=== PATIENT | male | born 1945 | race Caucasian/White ===

== ENCOUNTER 2024-05-11 06:21 | Day surgery (SDC) | payer OTHER, SELFPAY ==
[2024-05-06 08:37] VITALS: BMI 36.6
[2024-05-06 09:00] LABS: Hematocrit 46.9 % (39.0-52.0); Mean Corp Hgb Conc. 34.1 g/dL (33.0-37.0); Mean Corpuscular Hgb 30.9 pg (27.0-31.0); Mean Corpuscular Volume 90.5 fL (80.0-94.0); Mean Platelet Volume 9.2 fL (7.4-10.4); Platelet Count 244 10^3/uL (130-400); Red Blood Cell Count 5.18 10^6/uL (4.70-6.10); Red Cell Dist. Width 12.4 % (11.5-14.5); White Blood Cell Count 5.7 10^3/uL (4.8-10.8)
[2024-05-06 09:24] LABS: ALT (SGPT) 39 U/L (0-50); AST (SGOT) 34 U/L (17-59); Albumin 4.2 g/dl (3.5-5.0); Alkaline Phosphatase 63 U/L (38-126); Blood Urea Nitrogen 23 mg/dl (9-20); Calcium 9.6 mg/dl (8.4-10.2); Carbon Dioxide 22 mmol/L (22-30); Chloride 106 mmol/L (98-107); Estimated Creatinine Clearance 91 ml/min; Glucose 101 mg/dl (70-99); Potassium 4.7 mmol/L (3.5-5.1); Sodium 142 mmol/L (135-145); Total Bilirubin 0.7 mg/dl (0.2-1.3); Total Protein 6.6 g/dl (6.3-8.2); eGFR > 60.00
[2024-05-11] VITALS (19 sets, daily range): BP systolic 91–197; BP diastolic 52–101; BMI 36.6
[2024-05-11] MEDS: TYLENOL 1000 MG PO ×3 (10:32→21:22)
[2024-05-11] MEDS: NORMOSOL-R/PLASMALYTE-A 1000 IV ×2 (10:32→19:56)
[2024-05-11] MEDS: SKELAXIN 800 MG PO (10:32)
[2024-05-11] MEDS: LYRICA 150 MG PO (10:32)
[2024-05-11] MEDS: CELEBREX 200 MG PO (10:32)
--- NOTE | 2024-05-11 14:36 | W.PN.UPDATE ---
Update Note
Progress Note Update
Lumbar stenosis and spondylolisthesis s/p L4-L5 PSF/poss Nelson w/ Dr Adair 05/11/24
DVT prophylaxis - b/l SCDs/TEDs
HTN - + parameters - monitor BP
SBO, 2019, treated conservatively
Diverticulosis
OA s/p b/l NAZ, R TKA
Elevated PSA w/o d/o BPH
Skin CA s/p MOHS x2
The patient will use a back brace post-op
[2024-05-11] MEDS: DILAUDID 0.25 MG IV ×2 (15:05→15:32)
[2024-05-11] MEDS: FLOMAX 0.4 MG PO (16:37)
[2024-05-11] MEDS: ZESTRIL 40 MG PO (17:31)
[2024-05-11] MEDS: ULTRAM 50 MG PO (17:42)
[2024-05-11] MEDS: ANCEF 5 IV (19:57)
[2024-05-11] MEDS: SENOKOT 17.2 MG PO (19:59)
[2024-05-11] MEDS: COLACE 100 MG PO (19:59)
[2024-05-11] MEDS: LYRICA 75 MG PO (21:21)
[2024-05-12] MEDS: ULTRAM 50 MG PO ×3 (00:28→11:51)
[2024-05-12] MEDS: NORMOSOL-R/PLASMALYTE-A 1000 IV (04:28)
[2024-05-12] MEDS: ANCEF 5 IV (04:28)
[2024-05-12] MEDS: TYLENOL 1000 MG PO ×2 (04:33→10:19)
[2024-05-12 05:48] LABS: Hematocrit 41.1 % (39.0-52.0)
[2024-05-12 06:35] LABS: Blood Urea Nitrogen 27 mg/dl (9-20); Calcium 8.8 mg/dl (8.4-10.2); Carbon Dioxide 25 mmol/L (22-30); Chloride 103 mmol/L (98-107); Estimated Creatinine Clearance 83 ml/min; Glucose 120 mg/dl (70-99); Potassium 4.6 mmol/L (3.5-5.1); Sodium 140 mmol/L (135-145); eGFR > 60.00
[2024-05-12 07:11] VITALS: BP 144/87
--- NOTE | 2024-05-12 07:54 | W.DS.TRANS ---
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
-
Discharge Instructions:
Sleep Apnea Risk High
Discharge Diagnosis/Procedures Lumbar stenosis and spondylolisthesis s/p L4-L5
posterior fusion and possible laminectomy w/ Dr
Adair 05/11/24
Diet Regular
Activity As tolerated
Additional Activity No heavy lifting >10 lbs
Driving Restrictions Not until seen by your Dr
Bathing Restrictions OK to shower in 4 days
Instructions:
Stand-Alone Forms: [facility] Lumbar D/C Inst.
Changes to Home Medications: No
Discharge Medications:
DC Medications w/original date entered in [facility]
ibuprofen 600 mg tablet 600 mg PO DAILY 06/18/19
lisinopril 40 mg tablet 40 mg PO DAILY 05/05/24
multivitamin 1 tab PO DAILY 05/05/24
Home Medication Changes
Pending Results: No
--- NOTE | 2024-05-12 07:54 | W.PN.SP ---
Today's Communication / Plan
-
Doing well
D/c post PT
Subjective / Objective
Subjective Data
Doing well
Pain is better in legs
Back is sore
Denies new weakness
Objective Data
Vital Signs
Temp Pulse Resp BP Pulse Ox
97.4 F 87 22 91/53 94
05/11/24 23:41 05/11/24 23:41 05/11/24 23:41 05/11/24 23:41 05/11/24 23:41
Intake and Output
05/11/24 05/12/24 05/13/24
06:59 06:59 06:59
Intake Total 2280 / 2280
Output Total 400 / 400
Balance 1880 / 1880
Intake:
Oral fluids 680 / 680
IV fluids (Total) 1600 / 1600
Normosal 400 / 400
Output:
Urine, Voided 400 / 400
Other:
Number of approximated MODERATE 1
amounts of urine
Lab Data
05/12/24 04:59
05/12/24 04:58
Physical Exam
-
Neuro stable
[2024-05-12] MEDS: FLOMAX 0.4 MG PO (08:25)
[2024-05-12] MEDS: SENOKOT 17.2 MG PO (08:25)
[2024-05-12] MEDS: COLACE 100 MG PO (08:25)
[2024-05-12] MEDS: ZESTRIL 40 MG PO (08:25)
--- NOTE | 2024-05-12 09:56 | CM ---
Addendum entered by Maria Del Carmen Connelly 05/12/24 10:04:
PCP: Yevgeniy Mae
Pharmacy: [address], [place]
Original Note:
Met with patient and at bedside
Lumbar stenosis
L4-L5 posterior spinal fusion - back brace post-op
IA Complete. IMM explained & signed. In chart
Await PT recommendation
Lives at [facility] with his in a 2 story home, 1 step to enter
PLOF: Independent with cane
DME in home: walker, cane, shower chair, commode
Denies housing/utilities/food/transportation insecurities
Anticipate no needs
PLAN: Home, no needs anticipated
to transport
[2024-05-12] MEDS: NORMOSOL-R/PLASMALYTE-A IV (09:57)
[2024-05-12] MEDS: LYRICA 75 MG PO (10:19)
[2024-05-12 11:30] VITALS: BP 112/79; BP 133/73; PULSE 88; O2SAT 95
--- NOTE | 2024-05-12 11:48 | W.PN.ORTHO ---
Today's Communication / Plan
-
D/c today since clinically stable, did well w/ PT and OT.
Assessment
.
Distal Motor Intact: Yes
Dressing:
Clean, dry and intact.
Assessment:
Lumbar stenosis and spondylolisthesis s/p L4-L5 PSF w/ Dr Adair 05/11/24
DVT prophylaxis - b/l SCDs/TEDs
HTN - + parameters - BPs stable
SBO, 2019, treated conservatively
Diverticulosis
OA s/p b/l NAZ, R TKA
Elevated PSA w/o d/o BPH
Skin CA s/p MOHS x2
The patient will use a back brace post-op
Plan
.
Surgery / Date: L4-L5 PSF w/ Dr Adair 05/11/24
DVT Prophylaxis: Other (b/l SCDs/TEDs)
Activity:
Out of bed.
PT/OT
Discharge Plan: Home
Subjective
.
.:
Patient resting comfortably in his bed.
Low back pain tolerable w/ minimal pain meds.
Denies any new significant complaints.
AM labs stable.
Eager for potential d/c today.
Vital Signs and Labs
.
Vital Signs and Labs:
Lab Results
05/12/24 04:59
05/12/24 04:58
Temp Pulse Resp BP Pulse Ox
97.5 F 75 19 144/87 98
05/12/24 07:11 05/12/24 08:25 05/12/24 07:11 05/12/24 08:25 05/12/24 07:11
Physical Exam
-
HEENT: No pallor, cyanosis, or jaundice. Throat clear.
NECK: Supple. No JVD.
RESPIRATORY: Lungs clear to auscultation.
CVS: S1, S2 normal. RRR.�
ABDOMEN: Soft, non-tender. No distension. Obese.
EXTREMITIES: Strength equal, no calf pain with palpation/dorsiflexion. Calves soft.
[employer] [employer]: AOx3. No focal deficits. ramp lead grossly intact
--- NOTE | 2024-05-12 11:56 | W.DS.TRANS ---
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
-
Discharge Instructions:
Sleep Apnea Risk High
Discharge Diagnosis/Procedures Lumbar stenosis and spondylolisthesis s/p L4-L5
posterior fusion w/ Dr Mana 05/11/24
Diet Regular
Activity As tolerated
Additional Activity No heavy lifting >10 lbs
Driving Restrictions Not until seen by your Dr
Bathing Restrictions OK to shower in 4 days
Instructions:
Stand-Alone Forms: [facility] Lumbar D/C Inst.
Changes to Home Medications: Yes
Discharge Medications:
DC Medications w/original date entered in [employer]
multivitamin 1 tab PO DAILY 05/05/24
Saccharomyces boulardii 250 mg capsule (Florastor) 250 mg PO BID #10 caps 05/12/24
acetaminophen 500 mg tablet (Tylenol Extra Strength) 1,000 mg (2 x 500 mg) PO Q6H #30 tabs 05/12/24
cephalexin 500 mg capsule 500 mg PO QID #20 caps 05/12/24
docusate sodium 100 mg capsule 100 mg PO BID #30 caps 05/12/24
lisinopril 40 mg tablet 40 mg PO DAILY #0 tabs 05/12/24
ondansetron HCl 4 mg tablet 4 mg PO Q6H PRN nausea and vomiting #30 tabs 05/12/24
pregabalin 75 mg capsule 75 mg PO BID #15 caps 05/12/24
sennosides 8.6 mg tablet (Senna Laxative) 17.2 mg (2 x 8.6 mg) PO BID #30 tabs 05/12/24
tramadol 50 mg tablet 50 - 100 mg (1 - 2 x 50 mg) PO Q6H PRN moderate-severe pain #30 tabs 05/12/24
Home Medication Changes
Saccharomyces boulardii 250 mg capsule (Florastor) 250 mg PO BID #10 caps 05/12/24
acetaminophen 500 mg tablet (Tylenol Extra Strength) 1,000 mg (2 x 500 mg) PO Q6H #30 tabs 05/12/24
cephalexin 500 mg capsule 500 mg PO QID #20 caps 05/12/24
docusate sodium 100 mg capsule 100 mg PO BID #30 caps 05/12/24
ondansetron HCl 4 mg tablet 4 mg PO Q6H PRN nausea and vomiting #30 tabs 05/12/24
pregabalin 75 mg capsule 75 mg PO BID #15 caps 05/12/24
sennosides 8.6 mg tablet (Senna Laxative) 17.2 mg (2 x 8.6 mg) PO BID #30 tabs 05/12/24
tramadol 50 mg tablet 50 - 100 mg (1 - 2 x 50 mg) PO Q6H PRN moderate-severe pain #30 tabs 05/12/24
Pending Results: No
[2024-05-12 12:07] VITALS: BP 112/50
[2024-05-12 12:30] VITALS: BP 116/57
== END 2024-05-12 12:40 | disposition home or self-care (01) ==
LOC: SDS 06:21
PROVIDERS: Physician Assistant; ATTENDING PHYSICIAN Orthopaedic Surgery Orthopaedic Surgery of the Spine; FAMILY PHYSICIAN Physician Assistant Medical
DX: M48.062 Spinal stenosis, lumbar region with neurogenic claudication (principal); M43.16 Spondylolisthesis, lumbar region
CPT/HCPCS: 22612; 63047; 36415; 72100; 76000; 80048; 80053; 85014; 85018; 85027; 87070; 97116; 97163; 97166; 97530; 97535; C1713; C1776